=== PATIENT | male | born 1990 | race Caucasian/White ===

== ENCOUNTER 2024-09-23 19:24 | Emergency (ER) | payer OTHER | END 2024-09-23 20:55 | disposition home or self-care (01) | LOC: MW.ED 19:24 | DX: S69.92XA Unspecified injury of left wrist, hand and finger(s), initial encounter (principal); S89.92XA Unspecified injury of left lower leg, initial encounter; S09.90XA Unspecified injury of head, initial encounter; W00.0XXA Fall on same level due to ice and snow, initial encounter; Y93.89 Activity, other specified | CPT/HCPCS: 71046; 71046-26; 73110-26-LT; 73110-LT; 73562-26-LT; 73562-LT; 99283 ==